=== PATIENT | male | born 1955 | race Two or more races ===

== ENCOUNTER 2023-01-09 21:59 | Emergency (ER) | payer OTHER, SELFPAY ==
--- NOTE | 2023-01-09 22:10 | ED.AMS ---
HPI - Altered Mental Status General Chief Complaint: Stroke Stated Complaint: AMS, last know well 1 hour, zoning in and out. Time Seen by Provider: 01/09/23 22:07 Source: patient, family and EMS Mode of arrival: EMS Limitations: no limitations History of Present Illness HPI narrative: 67-year-old male with known history of multiple strokes, hypertension, and chronic renal disease. Patient came in by ambulance after was found by his family becoming drowsy and sleep on and off, in the emergency department patient is drowsy able to answer most of the questions. Patient stated that he is out of town he and his here visiting her sister because she lost her son since yesterday and patient was not able to get sleep last night. Patient came in as a stroke alert patient passed a stroke screening exam with NIH score of 0. Found to be hypertensive, patient declined using any recreation drugs or alcohol. Because patient is out of town did not take his daily medication for blood pressure today. In the emergency department patient is asking for water, able to ambulate in the emergency department. Related Data Allergies Allergy/AdvReac Type Severity Reaction Status Date / Time No Known Allergies Allergy Verified 01/09/23 22:08 Review of Systems Review of Systems: All other systems are reviewed and are negative Constitutional: Reports as per HPI and Reports no additional constitutional complaints Eyes: Reports as per HPI and Reports no additional eye complaints Reports system reviewed and no additional complaints, except as documented Cardiovascular: Reports as per HPI and Reports no additional cardiovascular complaints Respiratory: Reports as per HPI and Reports no additional respiratory complaints Gastrointestinal: Reports as per HPI and Reports no additional gastrointestinal complaints Genitourinary: Reports no additional female genitourinary complaints Musculoskeletal: Reports no additional musculoskeletal complaints Skin/Breast: Reports system reviewed and no additional complaints, except as docu Psychiatric: Reports no additional psychiatric complaints Endocrine: Reports no additional endocrine complaints Hematologic/Lymphatic: Reports no additional hematologic/lymphatic complaints Allergic/Immunologic: Reports no additional allergic/immunologic complaints Reports system reviewed and no additional complaints, except as documented and Reports Abnormal speech present [facility] Social History Social History Alcohol intake: never Smoked in Last 30 Days: No Use of substances other than those prescribed or required for medical reasons: No Advance Directives: No Advance Directives Information Provided: No Physical Exam ED Vital Signs: Vital Signs - 24 hr 01/09/23 22:25 01/09/23 23:52 Temperature 97.7 F 98.1 F Pulse Rate 86 93 Respiratory Rate 12 10 L Blood Pressure 160/106 H 177/109 H Pulse Oximetry 95 Oxygen Delivery Method Room Air Room Air BMI result Body Mass Index 35.0 Vital signs have been reviewed and appear to be correct. Blood pressure elevated. Heart rate normal. Respiratory rate normal. Temperature normal. Oxygen saturation normal. Appearance: Alert. Oriented X3. No acute distress. Head: Normal external exam. Normocephalic. Atraumatic. No Phillips signs noted. No raccoon eyes noted Eyes: PERRLA. EOMI. Conjunctiva and sclera normal. Eyelids normal. ENT: TM's Normal. Pharynx normal. Uvula midline. Moist mucous membranes. No trismus noted. No drooling noted. No muffled voice noted. Neck: Normal inspection. Neck supple. FROM. No adenopathy. Thyroid Normal. No meningeal signs. No neck mass noted. CVS: Normal heart rate and rhythm. Heart sound normal. No murmurs noted. Pulses normal throughout. Respiratory: No respiratory distress. Painless inspiration. Breath sounds normal. No wheezes/rales/rhonchi noted. Chest nontender. No accessory muscle usage noted or decreased air movement noted. Abdomen: Soft and nontender. Bowel sounds normal in all 4 quadrants. No distention noted. No organomegaly noted. No visible injury noted. Back: No CVA tenderness. Full range of motion noted. Skin: Skin warm and dry. Normal skin color. Normal skin turgor. No rashes/lesions/lacerations noted. Extremities: No lower extremity edema. Extremities exhibit normal range of motion. Extremities nontender. Neuro: Oriented X 3. Cranial nerve exam: II-XII are grossly intact No motor deficit. No sensory deficit. Reflexes normal. NIH Stroke Scale Internal: Initial- Upon Arrival Time: 22:15 Level of Consciousness: Alert Level of Consciousness Questions: Answers both questions correctly Level of Consciousness Commands: Performs both tasks correctly Best Gaze: Normal Visual: No visual loss Facial Palsy: Normal Motor Arm (Right): No drift Motor Arm (Left): No drift Motor Leg (Right): No drift Motor Leg (Left): No drift Limb Ataxia: Absent Sensory: Normal Best Language: No aphasia Dysarthia: Normal Extinction and Inattention: No abnormality Score: 0 Course Course Course Narrative: A 67 year old male with known history of HTN, chronic renal insufficiency, poorly-controlled diabetes who did not take his regular medication today because visiting his [id number], patient did not sleep well for the last couple nights today is feeling tired and drowsy, normal exam no concern of acute stroke today, blood sugar found to be elevated and was given insulin in the ED. patient stated that his been having chronic kidney problem and he follow-up with a renal doctor last was seen by the Renal doctor was 3 weeks ago. Patient found to be positive for opiate and fentanyl patient declined using recreational drugs. Stated that he take oxycodone every now and then for chronic back pain. Medications Administered Discontinued Medications Generic Name Dose Route Start Last Admin Trade Name Frejovi PRN Reason Stop Dose Admin Insulin Human Lispro 10 unit 01/10/23 00:01 01/10/23 00:29 Insulin Lispro 100 Unit/Ml 3 Ml Vial SUBCUT 01/10/23 00:02 Not Given ONCE ONE Insulin Human Lispro 5 unit 01/10/23 00:01 01/10/23 00:28 Insulin Lispro 100 Unit/Ml 3 Ml Vial SUBCUT 01/10/23 00:02 5 unit ONCE ONE Administration Medical Decision Making Differential Diagnosis Differential Diagnoses: The differential diagnosis associated with the presentation includes (CVA, intracranial bleed, hypoglycemia, substance abuse, electrolyte abnormality, severe anemia, ACS.) Admission/Observation Consideration of admission/observation: Escalation of care including admission/observation considered Lab Data MDM Lab Attestation statement: I reviewed the patient's lab results. 01/09/23 23:15 01/09/23 23:15 Labs: Lab Results 01/09/23 01/09/23 01/09/23 Range/Units 22:59 23:15 23:16 WBC 7.8 (4.8-10.8) X10*3/uL RBC 6.09 H (4.60-5.80) X10*6/uL Hgb 16.0 (14.0-18.0) g/dl Hct 49.8 (42.0-52.0) % MCV 81.8 (80.0-98.0) fL MCH 26.3 L (27.0-33.0) pg MCHC 32.1 (31.0-36.0) g/dl RDW 13.9 (11.0-16.0) % Plt Count 294 (160-400) X10*3/uL MPV 9.2 L (9.4-12.4) fL Immature Gran % (Auto) 0.4 (0.0-0.4) % Neut % (Auto) 79.9 H (45-73) % Lymph % (Auto) 12.9 L (20-40) % Stafford % (Auto) 5.5 (2-11) % Eos % (Auto) 0.8 (0-4) % Baso % (Auto) 0.5 (0-2) % Lymph # (Auto) 1.0 L (1.2-4.9) X10*3/uL Stafford # (Auto) 0.4 (0.1-1.2) X10*3/uL Eos # (Auto) 0.1 (0.0-0.4) X10*3/uL Baso # (Auto) 0.0 (0.0-0.2) X10*3/uL Abs Immat Gran (auto) 0.03 (0.00-0.03) X10*3/uL Absolute Neuts (auto) 6.3 (2.0-8.3) x10*3/uL Absolute Nucleated RBC 0.000 (0.0-0.012) X10*3/uL Nucleated RBC % (auto) 0.0 (0.0-0.2) /100WBC PT 11.6 (11.1-13.3) SEC INR 1.0 (0.9-1.1) APTT 33.4 (26.0-36.4) SEC Sodium 137 (135-145) mmol/L Potassium 3.6 (3.3-5.1) mmol/L Chloride 94 L (96-108) mmol/L Carbon Dioxide 27 (22-29) mmol/L Anion Gap 20 (12-20) BUN 43 H (9-16) mg/dL Creatinine 3.08 H (0.5-1.4) mg/dL Estim Creat Clear Calc 29.8 Estimated GFR 20 POC Glucose 297 H (60-115) mg/dL Random Glucose 344 H (60-115) mg/dL Calcium 10.0 (8.4-10.2) mg/dL Total Creatine Kinase 200 H (38-174) U/L Troponin I High Sens 8.6 (<3.5-35.0) ng/L Hold Green Top See Note Urine Color Urine Appearance Urine pH (5.0-9.0) Ur Specific Randolph (1.005-1.025) Urine Protein (Neg-Trace) mg/dL Urine Glucose (UA) (Negative) mg/dL Urine Ketones (Negative) mg/dL Urine Blood (Negative) Urine Nitrite (Negative) Ur Leukocyte Esterase (Negative) Urine Opiates Screen (Not Detect) Urine Fentanyl Screen (Not Detect) Ur Barbiturates Screen (Not Detect) Ur Phencyclidine Scrn (Not Detect) Ur Amphetamines Screen (Not Detect) U Benzodiazepines Scrn (Not Detect) Urine Cocaine Screen (Not Detect) U Marijuana (THC) Screen (Not Detect) 01/10/23 01/10/23 Range/Units 00:17 00:24 WBC (4.8-10.8) X10*3/uL RBC (4.60-5.80) X10*6/uL Hgb (14.0-18.0) g/dl Hct (42.0-52.0) % MCV (80.0-98.0) fL MCH (27.0-33.0) pg MCHC (31.0-36.0) g/dl RDW (11.0-16.0) % Plt Count (160-400) X10*3/uL MPV (9.4-12.4) fL Immature Gran % (Auto) (0.0-0.4) % Neut % (Auto) (45-73) % Lymph % (Auto) (20-40) % Stafford % (Auto) (2-11) % Eos % (Auto) (0-4) % Baso % (Auto) (0-2) % Lymph # (Auto) (1.2-4.9) X10*3/uL Stafford # (Auto) (0.1-1.2) X10*3/uL Eos # (Auto) (0.0-0.4) X10*3/uL Baso # (Auto) (0.0-0.2) X10*3/uL Abs Immat Gran (auto) (0.00-0.03) X10*3/uL Absolute Neuts (auto) (2.0-8.3) x10*3/uL Absolute Nucleated RBC (0.0-0.012) X10*3/uL Nucleated RBC % (auto) (0.0-0.2) /100WBC PT (11.1-13.3) SEC INR (0.9-1.1) APTT (26.0-36.4) SEC Sodium (135-145) mmol/L Potassium (3.3-5.1) mmol/L Chloride (96-108) mmol/L Carbon Dioxide (22-29) mmol/L Anion Gap (12-20) BUN (9-16) mg/dL Creatinine (0.5-1.4) mg/dL Estim Creat Clear Calc Estimated GFR POC Glucose 320 H (60-115) mg/dL Random Glucose (60-115) mg/dL Calcium (8.4-10.2) mg/dL Total Creatine Kinase (38-174) U/L Troponin I High Sens (<3.5-35.0) ng/L Hold Green Top Urine Color Yellow Urine Appearance Cloudy Urine pH 5.0 (5.0-9.0) Ur Specific Randolph 1.025 (1.005-1.025) Urine Protein 300 (3+) H (Neg-Trace) mg/dL Urine Glucose (UA) >=1000 H (Negative) mg/dL Urine Ketones Negative (Negative) mg/dL Urine Blood Small (1+) H (Negative) Urine Nitrite Negative (Negative) Ur Leukocyte Esterase Small (1+) H (Negative) Urine Opiates Screen POSITIVE H (Not Detect) Urine Fentanyl Screen POSITIVE H (Not Detect) Ur Barbiturates Screen Not Detected (Not Detect) Ur Phencyclidine Scrn Not Detected (Not Detect) Ur Amphetamines Screen Not Detected (Not Detect) U Benzodiazepines Scrn Not Detected (Not Detect) Urine Cocaine Screen Not Detected (Not Detect) U Marijuana (THC) Screen Not Detected (Not Detect) Independent Interpretation I performed an independent interpretation of an: Plain X-Ray (Chest: Hypoinflated lungs with left basilar atelectasis.) and CT Scan (Head:No acute intracranial abnormality. No evidence of acute intracranial hemorrhage or acute territorial edematous infarction. 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 Evaluation for small focal acute or subacute infarct in this setting is limited. If clinicall) Radiology Impression Discussion of test interpretation with radiology: I have reviewed the radiologist's reading. Chronic Conditions Patient?s care impacted by: Diabetes, Hypertension and Other (Chronic renal disease.) Discharge Plan Discharge Clinical Impression: Tiredness, Essential hypertension, Uncontrolled diabetes mellitus with hyperglycemia Chronic kidney disease Qualifiers: Chronic kidney disease stage 3 subtype: unspecified whether 3a or 3b Patient Disposition: Home, Self-Care Instructions: Chronic Kidney Disease (ED), Chronic Hypertension (ED), Diabetic Hyperglycemia (ED) Additional Instructions: Follow-up with your kidney doctor. Follow-up with your PCP. Take your medication for diabetes and high blood pressure as instructed by your PCP.
[2023-01-09 22:16] VITALS: BP 173/119; PULSE 102; O2SAT 98
--- NOTE | 2023-01-09 22:23 | MHC.EDTECH ---
Gina krueger from [facility] for Dr. Bales
[2023-01-09 22:25] VITALS: BP 160/106; PULSE 86; RESP 12; TEMP 36.5; O2SAT 95; BMI 35.0
--- NOTE | 2023-01-09 23:34 | PC.NURSE ---
Pt A&Ox3, denies any pain, at bedside reports LWKT was 1.5 hours after dinner prior to arrival. Pt lethargic, able to follow commands, pinpoint pupils noted. Pt states no sleep in a few days . 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
[2023-01-09 23:52] VITALS: BP 177/109; PULSE 93; RESP 10; TEMP 36.7
--- NOTE | 2023-01-10 00:43 | PC.NURSE ---
Pt ambulated independently with steady gait to BR, urine sample collected and sent to lab.
[2023-01-10 01:01] VITALS: BP 184/150; PULSE 109; RESP 20; TEMP 36.4; O2SAT 98
--- NOTE | 2023-01-10 01:03 | PC.NURSE ---
Provider made aware of Pt BP, Pt reports not taking BP med today.
== END 2023-01-10 01:06 | disposition home or self-care (01) ==
PROVIDERS: Emergency Provider Emergency Medicine
DX: E11.65 Type 2 diabetes mellitus with hyperglycemia (principal); E11.22 Type 2 diabetes mellitus with diabetic chronic kidney disease; I12.9 Hypertensive chronic kidney disease with stage 1 through stage 4 chronic kidney disease, or unspecified chronic kidney disease; R51.9 Headache, unspecified; R94.31 Abnormal electrocardiogram [ECG] [EKG]; N18.30 Chronic kidney disease, stage 3 unspecified; R53.83 Other fatigue; R41.82 Altered mental status, unspecified; Z79.899 Other long term (current) drug therapy
CPT/HCPCS: 36415; 51702; 70450; 71045; 80048; 80307; 81001; 82550; 82947; 84484; 85025; 85610; 85730; 87086; 87088; 87186; 93005; 96372; 99285